=== PATIENT | male | born 1995 | race Caucasian/White ===

== ENCOUNTER → 2017-12-01 | Emergency (ER) | payer BC ==
[~2017-12-01] VITALS: Ht 182.9 cm; Wt 108.9 kg
[~2017-12-01] MED LIST: AMITRIPTYLINE H50 MG PO
== END ==
LOC: ED 18:15
DX: R10.9 Unspecified abdominal pain (principal); Z91.013 Allergy to seafood; Z79.899 Other long term (current) drug therapy
CPT/HCPCS: 71046; 80053; 81001; 83690; 85025; 85610; 85730; 86850; 86900; 86901; 99284; J7030